=== PATIENT | female | born 1995 | race Two or more races ===

== ENCOUNTER 2017-05-02 10:30 | Emergency (ER) | payer MEDICAID ==
[~2017-05-02] VITALS: Ht 162.6 cm; Wt 63.5 kg
[~2017-05-02 10:30] MED LIST: DIVA500T12 PO; LOR05T GT; OXYCARBAZEPINE; RISP1TAB63 PO; SEROQ; TRAZ100T2 PO
[2017-05-02 11:37] VITALS: BP 116/78
== END 2017-05-02 11:47 | disposition home or self-care (01) ==
LOC: ER 10:30 → EDUNIT# 10:30 → ER 11:47
DX: S00.03XA Contusion of scalp, initial encounter (principal); S09.90XA Unspecified injury of head, initial encounter; Z79.899 Other long term (current) drug therapy; W18.39XA Other fall on same level, initial encounter; Y93.89 Activity, other specified; Y92.89 Other specified places as the place of occurrence of the external cause; Y99.8 Other external cause status
CPT/HCPCS: 70450

== ENCOUNTER 2017-05-15 11:45 | Emergency (ER) | payer MEDICAID ==
[~2017-05-15] VITALS: Ht 157.5 cm; Wt 59.0 kg
[~2017-05-15 11:45] MED LIST changes: -LOR05T GT; +LORA-654 GT
[2017-05-15 14:47] VITALS: BP 118/78
== END 2017-05-15 14:57 | disposition home or self-care (01) ==
LOC: EDBD 11:45 → ER 11:45
DX: F25.9 Schizoaffective disorder, unspecified (principal)

== ENCOUNTER 2017-05-29 09:01 | Emergency (ER) | payer MEDICAID ==
[~2017-05-29] VITALS: Ht 152.4 cm; Wt 59.0 kg
[2017-05-29 09:14] VITALS: BP 124/84
== END 2017-05-29 10:39 | disposition home or self-care (01) ==
LOC: ER 09:01 → EDBD 09:01 → ER 10:39
DX: R51 Headache (principal); W19.XXXA Unspecified fall, initial encounter; Y93.89 Activity, other specified; Y99.8 Other external cause status; Y92.89 Other specified places as the place of occurrence of the external cause
CPT/HCPCS: 70450

== ENCOUNTER 2018-03-21 15:28 | Emergency (ER) | payer MEDICAID ==
[~2018-03-21] VITALS: Ht 152.4 cm; Wt 61.7 kg
[2018-03-21 15:46] VITALS: BP 107/73
== END 2018-03-21 17:32 | disposition home or self-care (01) ==
LOC: ER 15:32
DX: S00.03XA Contusion of scalp, initial encounter (principal); X58.XXXA Exposure to other specified factors, initial encounter; Y93.89 Activity, other specified; Y92.89 Other specified places as the place of occurrence of the external cause; Y99.8 Other external cause status
CPT/HCPCS: 70450

== ENCOUNTER 2018-05-06 16:02 | Emergency (ER) | payer MEDICAID ==
[~2018-05-06] VITALS: Ht 154.9 cm; Wt 63.5 kg
[2018-05-07 00:22] VITALS: BP 116/75
== END 2018-05-07 02:06 | disposition home or self-care (01) ==
LOC: EDBD 16:02 → ER 16:02
DX: S00.03XA Contusion of scalp, initial encounter (principal); Z79.899 Other long term (current) drug therapy; W18.39XA Other fall on same level, initial encounter; Y93.89 Activity, other specified; Y99.8 Other external cause status; Y92.89 Other specified places as the place of occurrence of the external cause
CPT/HCPCS: 70450

== ENCOUNTER 2018-09-23 19:24 | Emergency (ER) | payer MEDICAID ==
[~2018-09-23] VITALS: Ht 152.4 cm; Wt 61.9 kg
[2018-09-23 19:57] VITALS: BP 106/63
[2018-09-23] MEDS ORDERED: CYCLOBENZAPRINE HCL 10 MG TAB PO ONE (23:30)
== END 2018-09-23 23:45 | disposition home or self-care (01) ==
LOC: ER 19:29
DX: S40.012A Contusion of left shoulder, initial encounter (principal); M62.838 Other muscle spasm; F41.9 Anxiety disorder, unspecified; F32.9 Major depressive disorder, single episode, unspecified; F84.0 Autistic disorder; X58.XXXA Exposure to other specified factors, initial encounter; Y93.89 Activity, other specified; Y92.89 Other specified places as the place of occurrence of the external cause; Y99.8 Other external cause status
CPT/HCPCS: 73030

== ENCOUNTER 2019-02-04 10:43 | Emergency (ER) | payer MEDICAID ==
[~2019-02-04] VITALS: Ht 152.4 cm; Wt 47.2 kg
[2019-02-04 11:06] VITALS: BP 93/59
== END 2019-02-04 11:50 | disposition home or self-care (01) ==
LOC: ER 10:43
DX: S00.11XA Contusion of right eyelid and periocular area, initial encounter (principal); S00.81XA Abrasion of other part of head, initial encounter; W22.8XXA Striking against or struck by other objects, initial encounter; Y93.9 Activity, unspecified; Y92.89 Other specified places as the place of occurrence of the external cause; Y99.8 Other external cause status

== ENCOUNTER 2020-07-15 13:04 | Emergency (ER) | payer MEDICAID ==
[~2020-07-15] VITALS: Ht 152.4 cm; Wt 53.7 kg
[~2020-07-15 13:04] MED LIST changes: -LORA-654 GT; +LORA0.5T20 GT; -TRAZ100T2 PO; +TRAZ100T3 PO
[2020-07-15 13:22] VITALS: BP 100/69
== END 2020-07-15 15:51 | disposition home or self-care (01) ==
LOC: ER 13:04
DX: S01.01XA Laceration without foreign body of scalp, initial encounter (principal); W18.09XA Striking against other object with subsequent fall, initial encounter; Y93.89 Activity, other specified; Y92.89 Other specified places as the place of occurrence of the external cause; Y99.8 Other external cause status
CPT/HCPCS: 12002

== ENCOUNTER 2020-08-01 11:05 | Emergency (ER) | payer MEDICAID ==
[~2020-08-01] VITALS: Ht 152.4 cm; Wt 49.9 kg
[2020-08-01 11:38] VITALS: BP 95/57
== END 2020-08-01 14:11 | disposition home or self-care (01) ==
LOC: ER 11:05
DX: S00.93XA Contusion of unspecified part of head, initial encounter (principal); H11.31 Conjunctival hemorrhage, right eye; Z79.899 Other long term (current) drug therapy; W19.XXXA Unspecified fall, initial encounter; Y93.89 Activity, other specified; Y92.89 Other specified places as the place of occurrence of the external cause; Y99.8 Other external cause status
CPT/HCPCS: 70450; 70486

== ENCOUNTER 2020-09-03 19:02 | Emergency (ER) | payer MEDICAID ==
[~2020-09-03] VITALS: Ht 152.4 cm; Wt 49.9 kg
[2020-09-03 19:06] VITALS: BP 97/62
== END 2020-09-03 21:40 | disposition other institution (70) ==
LOC: ER 19:04
DX: S00.01XA Abrasion of scalp, initial encounter (principal); Z79.899 Other long term (current) drug therapy; X58.XXXA Exposure to other specified factors, initial encounter; Y93.89 Activity, other specified; Y92.89 Other specified places as the place of occurrence of the external cause; Y99.8 Other external cause status

== ENCOUNTER 2020-11-21 20:16 | Emergency (ER) | payer MEDICAID ==
[~2020-11-21] VITALS: Ht 152.4 cm; Wt 49.0 kg
[2020-11-21 22:51] VITALS: BP 125/69
== END 2020-11-21 22:59 | disposition home or self-care (01) ==
LOC: ER 20:17
DX: S82.832A Other fracture of upper and lower end of left fibula, initial encounter for closed fracture (principal); Z79.899 Other long term (current) drug therapy; W01.0XXA Fall on same level from slipping, tripping and stumbling without subsequent striking against object, initial encounter; Y93.89 Activity, other specified; Y92.89 Other specified places as the place of occurrence of the external cause; Y99.8 Other external cause status
CPT/HCPCS: 29515; 73610

== ENCOUNTER 2020-12-02 11:11 | Emergency (ER) | payer MEDICAID ==
[~2020-12-02] VITALS: Ht 157.5 cm; Wt 49.9 kg
[2020-12-02 11:13] VITALS: BP 111/76
== END 2020-12-02 13:42 | disposition home or self-care (01) ==
LOC: ER 11:11
DX: S82.832A Other fracture of upper and lower end of left fibula, initial encounter for closed fracture (principal); F41.9 Anxiety disorder, unspecified; F32.9 Major depressive disorder, single episode, unspecified; F20.9 Schizophrenia, unspecified; Z79.899 Other long term (current) drug therapy; X58.XXXA Exposure to other specified factors, initial encounter; Y93.89 Activity, other specified; Y92.89 Other specified places as the place of occurrence of the external cause; Y99.8 Other external cause status
CPT/HCPCS: 29515

== ENCOUNTER 2021-01-02 15:57 | Emergency (ER) | payer MEDICAID ==
[2021-01-02 16:05] VITALS: BP 103/76
== END 2021-01-02 18:06 | disposition home or self-care (01) ==
LOC: ER 15:57
DX: S01.81XA Laceration without foreign body of other part of head, initial encounter (principal); Z79.899 Other long term (current) drug therapy; W18.39XA Other fall on same level, initial encounter; Y93.89 Activity, other specified; Y92.89 Other specified places as the place of occurrence of the external cause; Y99.8 Other external cause status
CPT/HCPCS: 12011

== ENCOUNTER 2022-08-15 14:25 | Emergency (ER) | payer MEDICAID ==
[~2022-08-15] VITALS: Ht 160 cm; Wt 49.5 kg
[2022-08-15 15:26] VITALS: BP 125/83
[2022-08-15] MEDS ORDERED: IBUPROFEN 600 MG TAB PO ONE (16:30)
[2022-08-15] MEDS ORDERED: IBUP600T27 PO (16:31)
== END 2022-08-15 16:43 | disposition home or self-care (01) ==
LOC: ER 14:25
DX: S92.241A Displaced fracture of medial cuneiform of right foot, initial encounter for closed fracture (principal); Z79.1 Long term (current) use of non-steroidal anti-inflammatories (NSAID); Z79.899 Other long term (current) drug therapy; W06.XXXA Fall from bed, initial encounter; Y93.89 Activity, other specified; Y92.89 Other specified places as the place of occurrence of the external cause; Y99.8 Other external cause status
CPT/HCPCS: 29515; 73610; 73630